=== PATIENT | female | born 1995 | race African-American/Black ===

== ENCOUNTER 2017-03-12 18:25 | Emergency (ER) | payer BC ==
[~2017-03-12] VITALS: Ht 157.5 cm; Wt 60.6 kg
[2017-03-12 18:47] VITALS: TEMP 37.7; Ht 157.5 cm; Wt 60.6 kg
[2017-03-12] MEDS ORDERED: IBUPROFEN 600 MG TAB PO STA (19:10)
--- NOTE | 2017-03-12 19:13 | EMERGENCY ROOM VISIT NOTE ---
ED Visit Note First contact with patient: 18:51 CHIEF COMPLAINT: Sore throat, fatigue, weakness, chills 5 days HISTORY OF PRESENT ILLNESS: This 21-year-old female patient presents to the emergency department, ambulatory, complaining of weakness, sore throat, fatigue , chills, hot flashes, and headache which began 5 days ago. The patient does report one episode of emesis this morning. She states she has had a decreased appetite. The patient has been taking Aleve and NyQuil intermittently for her symptoms. She is not taken any today because she was "tired of taking medications". The patient states her symptoms are causing difficulty sleeping. She states the sore throat has been present since the symptoms began. Patient denies any abdominal pain, diarrhea, constipation. She states she did not note any white patches or drainage from the back of the throat. The patient reports some mild congestion and runny nose. She has been using a OTC nasal spray which does help with her symptoms. The patient denies fever, runny nose, lymphadenopathy, chest pain, difficulty breathing, or other symptoms. REVIEW OF SYSTEMS: A 10 system review of systems was performed with positives and pertinent negatives listed in the history of present illness. All other systems were reviewed and are negative. ALLERGIES: None MEDICATIONS: None PMH: None SOCIAL HISTORY: The patient lives locally with her roommate. She denies drug, alcohol, tobacco use. PHYSICAL EXAM: VITALS: Vitals are noted on the nurse's note and reviewed by myself. Vital signs stable, but the patient does have a fever of 37.7C.. GENERAL: This is a 21-year-old black female, in no acute distress, nondiaphoretic, well-developed well-nourished. SKIN: The skin was without rashes, erythema, edema, or bruising. There is no tenting of the skin. Capillary reflex less than 2 seconds. HEAD: Normocephalic atraumatic. EARS: External auditory canals clear, tympanic membranes pearly patricia without erythema or effusion bilaterally. EYES: Pupils equal round and reactive to light and accommodation. Conjunctivae without injection, sclerae without icterus. Extraocular movements intact. NOSE: Patent, turbinates without inflammation or discharge. No sinus tenderness. MOUTH: Mucous membranes moist. Tonsils are enlarged. Pharynx is erythematous with exudate. Uvula midline. Airway patent. Tongue does not deviate. NECK: Supple without nuchal rigidity. No lymphadenopathy. No thyromegaly. Cervical spine is nontender. No JVD. HEART: Regular rate and rhythm without murmurs gallops or rubs. LUNGS: Clear to auscultation bilaterally without wheezes, rales or rhonchi. No dullness to percussion. No retractions or accessory muscle use. ABDOMEN: Positive bowel sounds x 4. Normal tympanic percussion. Soft, nontender, without masses or organomegaly. Mcintosh sign negative. No guarding or rebound tenderness. MUSCULOSKELETAL: No muscle atrophy, erythema, or edema noted. Full range of motion without joint tenderness in all extremities. No tenderness to palpation. Normal gait. Strength 5/5 throughout. NEURO: Patient was alert and oriented to person place and time. Normal sensation to light and sharp touch. Deep tendon reflexes 2+ throughout. No focal neurological deficits. EMERGENCY DEPARTMENT COURSE: The patient was seen and evaluated as above. Throat swabs were obtained for rapid strep and culture. Rapid strep test was negative, however due to the patient's symptoms and physical examination, I do have a very high suspicion for strep throat. The patient will be started on antibiotics at this time. She was given her first dose of 1000 milligrams amoxicillin by mouth as well as 600 mg ibuprofen to help with the swelling, fever, and pain. Discharge instructions were reviewed, and the patient was discharged home in good condition. I attest that I have personally reviewed the patient's current medication list. Patient was found to have normal blood pressure on screening and does not require follow-up. DIFFERENTIAL DIAGNOSIS: Acute pharyngitis, strep pharyngitis, upper respiratory infection, tonsillar abscess, mono, acute gastroenteritis, malignancy, and others DIAGNOSIS: Acute pharyngitis Current/Historical Medications Scheduled Amoxicillin (Amoxil), 1,000 MG PO QD Vital Signs Date Time Temp Pulse Resp B/P (MAP) Pulse Ox O2 Delivery O2 Flow Rate FiO2 03/12/17 18:47 37.7 113 18 149/99 95 Room Air Departure Information Impression Primary Impression: Acute pharyngitis Dispostion Home / Self-Care Condition GOOD Prescriptions Amoxicillin (AMOXIL) 500 Mg Cap 1000 MG PO QD for 10 Days, #20 CAP Prov: Dede Romero, [place] 03/12/17 Referrals No Doctor, Assigned (PCP) [facility] Patient Instructions ED Strep Pharyngitis Jessi Tillman [facility] Additional Instructions You were seen and evaluated in the emergency department today for acute pharyngitis. I do suspect strep throat based on your physical examination and symptoms. You were prescribed amoxicillin to be taken as directed. This is an antibiotic. All antibiotics have the potential to cause diarrhea. Stop this medication and contact a medical provider if you were to develop any significant adverse side effects including: wheezing, shortness of breath, passing out, vomiting, or a diffuse rash. Always take antibiotics as directed and COMPLETE the ENTIRE course regardless of the improvement of your symptoms. For your sore throat, you may use a 1:1 mixture of liquid Benadryl and liquid Maalox. Gargle and spit this mixture. It will help to soothe the throat and provide some relief. Drink warm tea with honey and lemon, as this will also help to soothe the throat. Gargle with salt water frequently. As discussed, you should take OTC Mucinex and/or Sudafed for your symptoms. Please do not exceed the recommended daily dosages. Ibuprofen(Motrin, Advil) may be used for fever or pain. Use 600mg every six hours as needed. Take with food. Avoid using more than 2400mg in a 24 hour period. Do not use 2400mg per day for more than three consecutive days without physician direction. Prolonged inappropriate use can lead to stomach upset or ulcers. You may take Naproxen 1-[address] daily in place of ibuprofen. This medication will help with the swelling in your sinuses. (AND/OR) Acetaminophen(Tylenol) may be used for fever or pain. Use 1000mg every six hours as needed. Avoid using more than 3000mg in a 24 hour period. For congestion, you may use Flonase OTC. You may want to consider zinc, echinacea, and vitamin C to help boost your immunity. Please get plenty of rest and drink plenty of fluids. Please follow-up with [facility] in 2 days for re-check. You are contagious until you have had 24 hours of antibiotics in you. Do not go to class tomorrow. Avoid kissing or other physical contact with other people. Return to the emergency department for coughing up blood, difficulty breathing, chest pain, worsening symptoms, or for other concerns. School Instructions Return To School: 1 day Problem Qualifiers Primary Impression: Acute pharyngitis Pharyngitis/tonsillitis etiology: unspecified etiology Qualified Codes: J02.9 - Acute pharyngitis, unspecified
[2017-03-12] MEDS ORDERED: AMOXICILLIN 250 MG CAP PO STA (19:20)
[2017-03-12] MEDS ORDERED: AMOX500C3 PO (19:23)
[2017-03-12 19:50] VITALS: BP 146/84; PULSE 117; O2SAT 96
== END 2017-03-12 19:53 | disposition home or self-care (01) ==
LOC: C.EDB 18:27 → C.EDD 19:53
DX: J02.9 Acute pharyngitis, unspecified (principal)

== ENCOUNTER 2017-05-23 01:01 | Emergency (ER) | payer BC ==
[~2017-05-23] VITALS: Ht 157.5 cm; Wt 63.0 kg
[2017-05-23 01:07] VITALS: Ht 157.5 cm; Wt 63.0 kg
--- NOTE | 2017-05-23 01:52 | EMERGENCY ROOM VISIT NOTE ---
History Report prepared by Siri: Amada Scott Under the Supervision of: Cristian TaylorO. First contact with patient: 01:15 Chief Complaint: RESPIRATORY PROBLEMS Stated Complaint: TIGHTENING CHEST,FEVER,SHORTNESS OF BREATH Nursing Triage Summary: Pt reports fever, cough, and chest congestion since yesterday. Pt reports taking, Ibuprofen, Tylenol, and aleve for her fever. She states, "My head feels hot but my hands and feet are cold." Pt also reports heart burn. History of Present Illness The patient is a 21 year old female who presents to the Emergency Room with complaints of persistent trouble breathing that started last night. The patient rates her discomfort an 8/10 in severity. The patient notes she woke up last night and had a hard time falling back to sleep because she was having trouble breathing. She states she is experiencing fever, chills, chest tightness and shortness of breath. The patient reports 2 days ago she ate and felt like she had to burp but was unable to until she sat up. She notes she has a minor cough and chest tightness. The patient denies any vomiting, diarrhea, rashes, or sores. She has no history of asthma and she is a nonsmoker. Source of History: patient Onset: last night Position: other (global) Symptom Intensity: 8/10 Timing: other (persistent) Associated Symptoms: + fevers, + chills, + cough, + chest pain ("tightness") , + SOB, No vomiting, No diarrhea Review of Systems See HPI for pertinent positives & negatives. A total of 10 systems reviewed and were otherwise negative. Past Medical & Surgical No pertinent past medical & surgical history. Family History No pertinent family history. Social History Smoking Status: Current Some Day Smoker Marital Status: single Current/Historical Medications No Active Prescriptions or Reported Meds Allergies Coded Allergies: No Known Allergies (Unverified , 05/23/17) Physical Exam Vital Signs Date Time Temp Pulse Resp B/P (MAP) Pulse Ox O2 Delivery O2 Flow Rate FiO2 05/23/17 04:20 37.0 90 16 123/88 100 Room Air 05/23/17 02:18 107 18 133/84 100 Room Air 05/23/17 01:22 Room Air 05/23/17 01:07 38.0 116 20 138/85 97 Room Air Physical Exam GENERAL: alert, well appearing, well nourished, no distress, non-toxic EYE EXAM: normal conjunctiva, PERRL and EOM's grossly intact OROPHARYNX: no exudate, no erythema, lips, buccal mucosa, and tongue normal and mucous membranes are moist NECK: supple, no nuchal rigidity, no adenopathy, non-tender LUNGS: Clear to auscultation. Normal chest wall mechanics. No wheezes, rhonchi, or rales. HEART: no murmurs, S1 normal and S2 normal ABDOMEN: abdomen soft, non-tender, normo-active bowel sounds, no masses, no rebound or guarding. BACK: Back is symmetrical on inspection and there is no deformity, no midline tenderness, no CVA tenderness. SKIN: no rashes and no bruising UPPER EXTREMITIES: upper extremities are grossly normal. LOWER EXTREMITIES: No pitting edema. Medical Decision & Procedures ER Provider Diagnostic Interpretation: Radiology results have been interpreted by the radiologist and reviewed by me. CHEST X-RAY: No cardiomegaly, no effusion, no wide mediastinum, no focal infiltrate, no PNX, no pulmonary edema. Laboratory Results 05/23/17 02:15 Red Blood Count 4.60, Mean Corpuscular Volume 81.3, Mean Corpuscular Hemoglobin 28.3, Mean Corpuscular Hemoglobin Concent 34.8, Mean Platelet Volume 10.2, Neutrophils (%) (Auto) 71.0, Lymphocytes (%) (Auto) 9.3, Monocytes (%) (Auto) 19.1, Eosinophils (%) (Auto) 0.3, Basophils (%) (Auto) 0.0, Neutrophils # (Auto ) 2.30, Lymphocytes # (Auto) 0.30, Monocytes # (Auto) 0.62, Eosinophils # (Auto ) 0.01, Basophils # (Auto) 0.00 05/23/17 02:15 Test 05/23/17 01:15 05/23/17 02:15 Influenza Type A Antigen Neg for Influ A (NEG) Influenza Type B Antigen Neg for Influ B (NEG) White Blood Count 3.24 K/uL (4.8-10.8) Red Blood Count 4.60 M/uL (4.2-5.4) Hemoglobin 13.0 g/dL (12.0-16.0) Hematocrit 37.4 % (37-47) Mean Corpuscular Volume 81.3 fL (80-100) Mean Corpuscular Hemoglobin 28.3 pg (25-34) Mean Corpuscular Hemoglobin Concent 34.8 g/dl (32-36) Platelet Count 210 K/uL (130-400) Mean Platelet Volume 10.2 fL (7.4-10.4) Neutrophils (%) (Auto) 71.0 % Lymphocytes (%) (Auto) 9.3 % Monocytes (%) (Auto) 19.1 % Eosinophils (%) (Auto) 0.3 % Basophils (%) (Auto) 0.0 % Neutrophils # (Auto) 2.30 K/uL (1.4-6.5) Lymphocytes # (Auto) 0.30 K/uL (1.2-3.4) Monocytes # (Auto) 0.62 K/uL (0.11-0.59) Eosinophils # (Auto) 0.01 K/uL (0-0.5) Basophils # (Auto) 0.00 K/uL (0-0.2) RDW Standard Deviation 41.7 fL (36.4-46.3) RDW Coefficient of Variation 13.9 % (11.5-14.5) Immature Granulocyte % (Auto) 0.3 % Immature Granulocyte # (Auto) 0.01 K/uL (0.00-0.02) Anion Gap 7.0 mmol/L (3-11) Est Creatinine Clear Calc Drug Dose 96.7 ml/min Estimated GFR () 121.2 Estimated GFR (Non- 104.6 BUN/Creatinine Ratio 9.7 (10-20) Calcium Level 8.2 mg/dl (8.5-10.1) Total Bilirubin 0.2 mg/dl (0.2-1) Aspartate Amino Transf (AST/SGOT) 18 U/L (15-37) Alanine Aminotransferase (ALT/SGPT) 20 U/L (12-78) Alkaline Phosphatase 52 U/L (45-117) Troponin I < 0.015 ng/ml (0-0.045) Total Protein 7.2 gm/dl (6.4-8.2) Albumin 3.8 gm/dl (3.4-5.0) Globulin 3.4 gm/dl (2.5-4.0) Albumin/Globulin Ratio 1.1 (0.9-2) Lipase 127 U/L (73-393) Human Chorionic Gonadotropin, Qual POS (NEG) Human Chorionic Gonadotropin, Quant < 1 mIU/mL Laboratory results per my review. Medications Administered Medications (Trade) Dose Ordered Sig/Ubaldo Route Start Time Stop Time Status Last Admin Dose Admin Al Hydroxide/Mg Hydroxide (Maalox Susp) 30 ml NOW STAT PO 05/23/17 02:00 05/23/17 02:02 DC 05/23/17 02:13 30 ML Albuterol/ Ipratropium (Duoneb) 3 ml NOW STAT INH 05/23/17 02:00 05/23/17 02:02 DC 05/23/17 02:13 3 ML Ketorolac Tromethamine (Toradol Inj) 30 mg NOW STAT IV 05/23/17 02:38 05/23/17 02:39 DC 05/23/17 02:55 30 MG ECG Indication: SOB/dyspnea Rate (beats per minute): 91 Rhythm: sinus rhythm Findings: no acute ischemic change, no ectopy, other (nonspecific T wave abnormaility, normal axis, normal intervals, no overt finding of pericarditis) Change: EKG: Patient's electrocardiogram per my interpretation. ED Course 0115: The patient was evaluated in room A3. A complete history and physical exam was performed. 0200: Duoneb 3 ml INH, Al Hydroxide/Mg Hydroxide 30 ml PO. 0238: Toradol Inj 30 mg IV. 0355: I updated the patient and discussed results. She feels better and is ready for discharge. 0400: Albuterol 2 puffs INH. Medical Decision Differential diagnosis: Etiologies such as viral syndrome, otitis, pharyngitis, pneumonia, influenza, meningitis, urinary tract infection, sepsis, bacteremia, as well as others were entertained. Patient well-appearing here throughout, no apparent distress at any time. Patient with possible sick contacts given she is a student. Patient with no vomiting and diarrhea, mild URI symptoms as well as description of burning in chest and prior history of heartburn/indigestion. This was relieved with Maalox. Patient states felt improved following medications here. States did have slight sensation of feeling short of breath, has had nonproductive cough intermittently. Patient improved following MDI treatment. Patient with no risk factors for PE, low risk Wells and Perc negative. No other evidence of congestive heart failure, occult pneumonia. Symptoms and exam not consistent with pericarditis or myocarditis. Patient with no EKG changes. Lab hCG initially positive however Quant was less than 1, I feel this is likely a false positive. Patient has not missed her menstrual cycle, is currently midcycle. Does not have any concerns for . Patient tolerating by mouth and well- appearing at time of discharge, vital signs stable, tachycardia improved with temperature control. I do not suspect bacteremia/sepsis. I feel patient's symptoms more likely viral syndrome, as well as possible GERD. Discussed with patient [id number] medications, avoidance of acidity in her diet, adequate hydration Tylenol and ibuprofen for fever control, symptoms to watch and return for, she verbalized understanding was agreeable with plan. Medication Reconcilliation Current Medication List: was personally reviewed by me Blood Pressure Screening Patient's blood pressure: Normal blood pressure Impression Primary Impression: Viral syndrome Additional Impression: GERD (gastroesophageal reflux disease) Scribe Attestation The scribe's documentation has been prepared under my direction and personally reviewed by me in its entirety. I confirm that the note above accurately reflects all work, treatment, procedures, and medical decision making performed by me. Departure Information Dispostion Home / Self-Care Prescriptions No Active Prescriptions or Reported Meds Referrals No Doctor, Assigned (PCP) Patient Instructions My [facility] Additional Instructions Please drink clear liquids at frequent intervals to stay well hydrated. You may use tylenol and ibuprofen for fevers and body aches. You may use tums or maalox intermittently for heartburn or indigestion. Avoid acidic food/drink in your diet including tomato based products, citrus fruits, coffee, soda, and alcohol. Please follow-up with your family doctor as a precaution. If you have worsening heartburn, recurrent trouble breathing, persistent fevers/chills , develop vomiting/diarrhea, develop rash or sores, or you have any other new or concerning symptoms, please return to the emergency room. Problem Qualifiers Additional Impression: GERD (gastroesophageal reflux disease) Esophagitis presence: esophagitis presence not specified Qualified Codes: K21.9 - Gastro-esophageal reflux disease without esophagitis
[2017-05-23] MEDS ORDERED: ALBUT/IPRATROP 3MG/0.5MG NEB 3 ML VIAL INH STA (02:00)
[2017-05-23] MEDS ORDERED: ALUMINUM/MAGNESIUM SUSP 30 ML UDC PO STA (02:00)
[2017-05-23 02:11] LABS: INFLUENZA B ANTIGEN Neg for Influ B (NEG)
[2017-05-23 02:26] LABS: EOS % 0.3 %; EOS ABS # 0.01 K/uL (0-0.5); HEMATOCRIT 37.4 % (37-47); IG# 0.01 K/uL (0.00-0.02); LYMPH % 9.3 %; MEAN CELL VOLUME 81.3 fL (80-100); MEAN CORPUSCULAR HEMOGLOBIN 28.3 pg (25-34); MEAN CORPUSCULAR HGB CONC 34.8 g/dl (32-36); MEAN PLATELET VOLUME 10.2 fL (7.4-10.4); MONO % 19.1 %; MONO ABS # 0.62 K/uL (0.11-0.59); PLATELET COUNT 210 K/uL (130-400); RED CELL DISTRIBUTION WIDTH CV 13.9 % (11.5-14.5); RED CELL DISTRIBUTION WIDTH SD 41.7 fL (36.4-46.3); WHITE BLOOD COUNT 3.24 K/uL (4.8-10.8)
[2017-05-23] MEDS ORDERED: KETOROLAC TROMETHAMINE 30 MG/ML VIAL IV STA (02:38)
[2017-05-23 02:47] LABS: ALBUMIN 3.8 gm/dl (3.4-5.0); ALT/SGPT 20 U/L (12-78); AST/SGOT 18 U/L (15-37); BLOOD UREA NITROGEN 8 mg/dl (7-18); CALCIUM 8.2 mg/dl (8.5-10.1); CARBON DIOXIDE 27 mmol/L (21-32); CREATININE 0.81 mg/dl (0.60-1.20); GLUCOSE 95 mg/dl (70-99); LIPASE 127 U/L (73-393); POTASSIUM 3.2 mmol/L (3.5-5.1); SODIUM 137 mmol/L (136-145)
[2017-05-23 02:52] LABS: ALKALINE PHOSPHATASE 52 U/L (45-117); TOTAL PROTEIN 7.2 gm/dl (6.4-8.2)
[2017-05-23] MEDS ORDERED: ALBUTEROL HFA 8 GM INHALER INH ONE (04:00)
[2017-05-23 04:20] VITALS: BP 123/88; PULSE 90; TEMP 37; O2SAT 100
--- NOTE | 2017-05-23 06:30 | DIAGNOSTIC IMAGING REPORT ---
CHEST 2 VIEWS ROUTINE CLINICAL HISTORY: Fever, cough COMPARISON STUDY: No previous studies for comparison. FINDINGS: The cardiac and mediastinal contours are normal. There is no evidence of focal pulmonary consolidation. There is no evidence of failure. No pleural effusions are visualized.[ IMPRESSION: No active disease in the chest. Electronically signed by: Margarito Zapata M.D. 05/23/2017 6:29 AM Dictated Date/Time: 05/23/2017 6:29 AM
== END 2017-05-23 04:27 | disposition home or self-care (01) ==
LOC: C.EDB 01:03 → C.EDA 04:27
DX: B34.9 Viral infection, unspecified (principal); K21.9 Gastro-esophageal reflux disease without esophagitis; F17.200 Nicotine dependence, unspecified, uncomplicated

== ENCOUNTER 2017-08-03 10:43 | Emergency (ER) | payer BC ==
[~2017-08-03] VITALS: Ht 157.5 cm; Wt 61.5 kg
[2017-08-03 10:46] VITALS: TEMP 36.8; Ht 157.5 cm; Wt 61.5 kg
[2017-08-03 11:55] LABS: BASO % 0.2 %; BASO ABS # 0.01 K/uL (0-0.2); EOS % 0.8 %; EOS ABS # 0.04 K/uL (0-0.5); HEMATOCRIT 39.2 % (37-47); HEMOGLOBIN 14.1 g/dL (12.0-16.0); IG# 0.01 K/uL (0.00-0.02); LYMPH ABS # 1.71 K/uL (1.2-3.4); MEAN CELL VOLUME 78.4 fL (80-100); MEAN CORPUSCULAR HEMOGLOBIN 28.2 pg (25-34); MEAN PLATELET VOLUME 9.8 fL (7.4-10.4); NEUT % 56.8 %; NEUT ABS # 2.86 K/uL (1.4-6.5); PLATELET COUNT 275 K/uL (130-400); RED CELL DISTRIBUTION WIDTH CV 12.3 % (11.5-14.5); RED CELL DISTRIBUTION WIDTH SD 35.3 fL (36.4-46.3); WHITE BLOOD COUNT 5.03 K/uL (4.8-10.8)
[2017-08-03 12:03] LABS: PTT PATIENT 25.7 SECONDS (21.0-31.0)
[2017-08-03 12:11] LABS: ALBUMIN 4.3 gm/dl (3.4-5.0); CALCIUM 9.1 mg/dl (8.5-10.1); CREATININE 0.86 mg/dl (0.60-1.20); POTASSIUM 3.4 mmol/L (3.5-5.1)
[2017-08-03 12:14] LABS: TOTAL PROTEIN 8.1 gm/dl (6.4-8.2)
--- NOTE | 2017-08-03 15:27 | DIAGNOSTIC IMAGING REPORT ---
ECTOPIC , TRANSVAG-FEMALE PELVIS CLINICAL HISTORY: 22 years-old Female presenting with EVAL IUP, , last menstrual period approximately 07/02/2017, no abnormal bleeding, possibly . TECHNIQUE: Real-time grayscale and M-mode Doppler ultrasound imaging of the pelvis was performed first using a transabdominal probe and subsequently transvaginal for better characterization. Color and spectral Doppler ultrasound imaging of the adnexa was also performed. COMPARISON: None. FINDINGS: Uterus: Single live intrauterine . [place]-rump length measures 12 mm corresponding to an estimated gestational age of 7 weeks 4 days. heart rate 130 beats per minute. Anteverted uterus. Normal amniotic fluid volume. Unable to accurately assess placental implantation secondary to early gestational age. No perigestational fluid to suggest hemorrhage. Cervix long and closed. Right adnexum: Right ovary normal. Right ovary measures 2.4 x 1.5 x 2.4 cm. Normal color Doppler flow and arterial and venous waveforms within the ovarian parenchyma. Left adnexum: Left ovary normal. Left ovary measures 2.6 x 1.7 x 3.5 cm. Normal color Doppler flow and arterial and venous waveforms within the ovarian parenchyma. Other: No free fluid. IMPRESSION: Single live intrauterine with an estimated gestational age of 7 weeks 4 days. Electronically signed by: Jesus Vieira M.D. 08/03/2017 3:26 PM Dictated Date/Time: 08/03/2017 3:22 PM
[2017-08-03 15:42] VITALS: BP 119/89; PULSE 72; O2SAT 96
--- NOTE | 2017-08-03 15:43 | EMERGENCY ROOM VISIT NOTE ---
History First contact with patient: 11:01 Chief Complaint: VOMITING Stated Complaint: THREW UP BLOOD, POSS History of Present Illness Patient is a 22-year-old -[place] female with past medical history significant for GERD who presents emergency department for evaluation of an episode of hematemesis this morning with a positive home test 1 week ago. Patient reports that her last menstrual period was between 06/24 and 2017. She has been nauseous for 2 weeks, and vomited once during that time. He has had some minor back pain and some abdominal cramping, but states that she did not get her period. She had a positive home test 1 week ago on 07/27. She states that this would be her first . This morning about 45 minutes prior to arrival in the emergency department, she was brushing her teeth, when she dry heaves, then vomited up a small amount of stomach acid/ mucus with a very small amount of bright red blood. She had some minor abdominal discomfort at that time which has subsequently resolved. She ate a banana on the way to the emergency department. At the present time, she claimed planes of feeling "weak" she does not have any abdominal pain or nausea. She denies any other easy bleeding or bruising including bleeding gums , epistaxis, hematuria, hematochezia or melena. She denies excessively heavy menstruation. She denies any dysuria, frequency or urgency. No vaginal discharge. Bowel movements have been normal. She denies any recent alcohol consumption. She has been taking Excedrin, Aleve and Tylenol intermittently for headaches and the abdominal cramping, but reports that she has been taking it within appropriate dosing parameters. Review of Systems Review of systems as per HPI. All other systems reviewed were negative. 10 systems reviewed. Past Medical/Surgical History Medical Problems: (1) Acute pharyngitis (2) GERD (gastroesophageal reflux disease) (3) Viral syndrome Electronic medical records are reviewed and summarized as above/below. See Problem List. Social History Smoking Status: Never Smoker Alcohol Use: none Marital Status: single Housing Status: lives with roommate Occupation Status: [employer] student Current/Historical Medications Scheduled PRN Ondasetron Odt (Zofran Odt), 4 MG SL Q6H PRN for Nausea or Vomiting Physical Exam Vital Signs Date Time Temp Pulse Resp B/P (MAP) Pulse Ox O2 Delivery O2 Flow Rate FiO2 08/03/17 15:42 72 16 119/89 96 Room Air 08/03/17 14:15 63 16 124/72 100 Room Air 08/03/17 12:51 81 18 115/89 93 08/03/17 10:46 36.8 87 18 121/81 98 Room Air Physical Exam CONSTITUTIONAL: Patient is a well-appearing 22-year-old -[place] female who is awake and alert and in no acute distress. EYES: Pupils equal, round, reactive to light and accommodation. EOMs intact without nystagmus. Sclera are anicteric. ENT: Tympanic membranes intact, with normal landmarks. External canals are clear. Oral and nasopharynx are clear. Mucous membranes are moist, no lesions , tongue and gums appear normal. NECK: Supple without lymphadenopathy. No thyromegaly. No meningeal signs. Full active range of motion without discomfort. CARDIOVASCULAR: Regular rate and rhythm, with normal S1 and S2, no murmur or gallop or rub is heard. No carotid bruits auscultated. No JVD. Peripheral pulses easily palpable. RESPIRATORY: Breath sounds equal and clear to auscultation without wheezes, rales, or rhonchi heard. Full and equal chest expansion without accessory muscle use or retractions. ABDOMEN: Bowel sounds are present. Abdomen is soft, nontender nondistended. No guarding, rebound or rigidity. INTEGUMENTARY: No lesions or rash, normal skin turgor. LYMPH: No lymphadenopathy. Medical Decision & Procedures ER Provider Diagnostic Interpretation: ECTOPIC , TRANSVAG-FEMALE PELVIS CLINICAL HISTORY: 22 years-old Female presenting with EVAL IUP, , last menstrual period approximately 07/02/2017, no abnormal bleeding, possibly . TECHNIQUE: Real-time grayscale and M-mode Doppler ultrasound imaging of the pelvis was performed first using a transabdominal probe and subsequently transvaginal for better characterization. Color and spectral Doppler ultrasound imaging of the adnexa was also performed. COMPARISON: None. FINDINGS: Uterus: Single live intrauterine . [place]-rump length measures 12 mm corresponding to an estimated gestational age of 7 weeks 4 days. heart rate 130 beats per minute. Anteverted uterus. Normal amniotic fluid volume. Unable to accurately assess placental implantation secondary to early gestational age. No perigestational fluid to suggest hemorrhage. Cervix long and closed. Right adnexum: Right ovary normal. Right ovary measures 2.4 x 1.5 x 2.4 cm. Normal color Doppler flow and arterial and venous waveforms within the ovarian parenchyma. Left adnexum: Left ovary normal. Left ovary measures 2.6 x 1.7 x 3.5 cm. Normal color Doppler flow and arterial and venous waveforms within the ovarian parenchyma. Other: No free fluid. IMPRESSION: Single live intrauterine with an estimated gestational age of 7 weeks 4 days. Laboratory Results 08/03/17 11:43 Red Blood Count 5.00, Mean Corpuscular Volume 78.4, Mean Corpuscular Hemoglobin 28.2, Mean Corpuscular Hemoglobin Concent 36.0, Mean Platelet Volume 9.8, Neutrophils (%) (Auto) 56.8, Lymphocytes (%) (Auto) 34.0, Monocytes (%) (Auto) 8.0, Eosinophils (%) (Auto) 0.8, Basophils (%) (Auto) 0.2, Neutrophils # (Auto) 2.86, Lymphocytes # (Auto) 1.71, Monocytes # (Auto) 0.40, Eosinophils # (Auto) 0.04, Basophils # (Auto) 0.01 08/03/17 11:43 Test 08/03/17 11:20 08/03/17 11:43 Urine Test POS (NEG) White Blood Count 5.03 K/uL (4.8-10.8) Red Blood Count 5.00 M/uL (4.2-5.4) Hemoglobin 14.1 g/dL (12.0-16.0) Hematocrit 39.2 % (37-47) Mean Corpuscular Volume 78.4 fL (80-100) Mean Corpuscular Hemoglobin 28.2 pg (25-34) Mean Corpuscular Hemoglobin Concent 36.0 g/dl (32-36) Platelet Count 275 K/uL (130-400) Mean Platelet Volume 9.8 fL (7.4-10.4) Neutrophils (%) (Auto) 56.8 % Lymphocytes (%) (Auto) 34.0 % Monocytes (%) (Auto) 8.0 % Eosinophils (%) (Auto) 0.8 % Basophils (%) (Auto) 0.2 % Neutrophils # (Auto) 2.86 K/uL (1.4-6.5) Lymphocytes # (Auto) 1.71 K/uL (1.2-3.4) Monocytes # (Auto) 0.40 K/uL (0.11-0.59) Eosinophils # (Auto) 0.04 K/uL (0-0.5) Basophils # (Auto) 0.01 K/uL (0-0.2) RDW Standard Deviation 35.3 fL (36.4-46.3) RDW Coefficient of Variation 12.3 % (11.5-14.5) Immature Granulocyte % (Auto) 0.2 % Immature Granulocyte # (Auto) 0.01 K/uL (0.00-0.02) Prothrombin Time 10.2 SECONDS (9.0-12.0) Prothromb Time International Ratio 1.0 (0.9-1.1) Activated Partial Thromboplast Time 25.7 SECONDS (21.0-31.0) Partial Thromboplastin Ratio 1.0 Anion Gap 6.0 mmol/L (3-11) Est Creatinine Clear Calc Drug Dose 89.3 ml/min Estimated GFR () 111.9 Estimated GFR (Non- 96.6 BUN/Creatinine Ratio 9.7 (10-20) Calcium Level 9.1 mg/dl (8.5-10.1) Total Bilirubin 0.5 mg/dl (0.2-1) Aspartate Amino Transf (AST/SGOT) 24 U/L (15-37) Alanine Aminotransferase (ALT/SGPT) 31 U/L (12-78) Alkaline Phosphatase 52 U/L (45-117) Total Protein 8.1 gm/dl (6.4-8.2) Albumin 4.3 gm/dl (3.4-5.0) Globulin 3.8 gm/dl (2.5-4.0) Albumin/Globulin Ratio 1.1 (0.9-2) Lipase 157 U/L (73-393) Human Chorionic Gonadotropin, Quant 478602 mIU/mL ED Course The patient was seen and evaluated as above. Old records were reviewed. She presents the emergency department for evaluation of a reported episode of hematemesis about an hour ago, with a positive home test 1 week ago. Upon further inquiry, the patient is primarily concerned regarding confirming the status. IV lock was initiated. Urine sample was collected and dipped and urine test was positive. Remainder of the urine dip was unremarkable. Laboratory studies were collected including CBC with differential , coags, CMP, lipase, ABO Rh and a quantitative hCG. Laboratory studies noted a normal white count 5000, H&H is 14.1 and 39.2, platelet count is 275,000, coags are normal. Electrolytes are without significant abnormality. Renal functions are not elevated. LFTs and lipase are normal. Her quantitative hCG is greater than 133,000, which is higher than expected for the suspected 5 week given the dates she provided for her last menstrual period. Given this, pelvic ultrasound was performed. Pelvic ultrasound confirms a single live intrauterine with an estimated gestational age of 7 weeks 4 days. Activity was confirmed at 130 bpm. There were no adnexal abnormalities noted. All laboratory and diagnostic imaging studies were reviewed with the patient. HCG is consistent with a of 7-1/2 weeks. She does not have evidence for ectopic. No other gynecologic abnormality such as PID, tubo-ovarian abscess ovarian cyst or ovarian torsion. She reports an episode of hematemesis this morning, H&H is stable and coags are unremarkable at this time. Her belly exam is benign and it was felt that this could be safely worked up as an outpatient. Differential diagnosis includes gastritis, Heather-Collins tear, PUD , GERD, esophageal rupture/perforation, Boerhaave's syndrome, among others. The patient was given copies of her laboratory studies and her ultrasound for follow-up purposes. She was educated on the worrisome signs or symptoms for which she should return to the emergency department.. She was discharged home in stable condition. Medical Decision See emergency department course. Medication Reconcilliation Current Medication List: was personally reviewed by mi Blood Pressure Screening Patient's blood pressure: Normal blood pressure Blood pressure disposition: Did not require urgent referral Impression Primary Impression: First trimester Additional Impression: Hematemesis Departure Information Prescriptions Ondasetron Odt (ZOFRAN ODT) 4 Mg Tab 4 MG SL Q6H Y for Nausea or Vomiting, #20 TAB Prov: Denise Lemos PA 08/03/17 Referrals No Doctor, Assigned (PCP) Patient Instructions My [facility] Additional Instructions You were evaluated today for intestinal bleeding. Your doctor did not find any serious cause to warrant an admission to the hospital. It is not uncommon for minor bleeding to be discharged for outpatient testing and follow up visits. Diet as tolerated. Continue current medications. Return to the ER immediately for abdominal pain, black or worsening bloody stool , passing out or feeling like you may pass out, vomiting, fevers, chest pains, difficulty breathing, worsening of your condition, or as needed. Follow up with your S to set up a follow up appointment for a recheck of your current condition. Follow up with [facility] for further care and treatment. Problem Qualifiers Additional Impression: Hematemesis Nausea presence: with nausea Qualified Codes: K92.0 - Hematemesis
[2017-08-03] MEDS ORDERED: ONDA4TAB10 SL (15:50)
== END 2017-08-03 16:07 | disposition home or self-care (01) ==
LOC: C.EDB 10:44 → C.EDC 16:07
DX: K92.0 Hematemesis (principal); Z34.01 Encounter for supervision of normal first pregnancy, first trimester; Z3A.01 Less than 8 weeks gestation of pregnancy; K21.9 Gastro-esophageal reflux disease without esophagitis